=== PATIENT | female | born 2000 | race Caucasian/White ===

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

== ENCOUNTER → 2018-03-02 | Outpatient (REF) | payer MEDICAID | LOC: M LAB REF 13:46 | DX: Z34.83 Encounter for supervision of other normal pregnancy, third trimester (principal) ==

== ENCOUNTER 2018-03-22 10:50 | Inpatient (IN) | payer OTHER, MEDICAID ==
[2018-03-22 11:56] LABS: HEMATOCRIT 36.7 % (36.0-47.0); HEMOGLOBIN 12.3 g/dl (12.0-15.5); MEAN CORPUSCULAR HEMOGLOBIN 30.9 pg (27.0-33.0); MEAN CORPUSCULAR HGB CONC 33.5 g/dl (32.0-36.5); MEAN CORPUSCULAR VOLUME 92.2 fl (80.0-96.0); PLATELET COUNT, AUTOMATED 193 10^3/uL (150-450); RED BLOOD COUNT 3.98 10^6/uL (4.00-5.40); RED CELL DISTRIBUTION WIDTH 14.5 % (11.5-14.5); WHITE BLOOD COUNT 18.9 10^3/uL (4.0-10.0)
[2018-03-22] MEDS: BUTORPHANOL 2 MG/ML INJ (J0595) IV (12:03)
[2018-03-22] MEDS: PROMETHAZINE INJ 25 MG/ML VIAL (J2550) IV (12:03)
[2018-03-22] MEDS ORDERED: OXYTOCIN 30 UNITS IN 0.9% NaCl 500ML IV BAG (J2590) As Ordered (13:22)
[2018-03-22] MEDS ORDERED: MEASLES,MUMPS,RUBELLA VACCINE INJ (MMR-II) (90707) SC (14:30)
[2018-03-22] MEDS ORDERED: OXYTOCIN DRIP 30 UNITS in APPROPRIATE DILUENT 1 EA IV (14:30)
[2018-03-22] MEDS ORDERED: RHOGAM 300 MCG (1500 IU) INJ (J2790) IM (14:30)
[2018-03-22] MEDS ORDERED: DOCUSATE SODIUM 100 MG CAP PO (14:30)
[2018-03-22] MEDS ORDERED: METHYLERGONOVINE MALEATE 0.2 MG TAB PO (14:30)
[2018-03-22] MEDS ORDERED: DIBUCAINE 1% OINTMENT 30GM TOP (14:30)
[2018-03-22] MEDS ORDERED: ONDANSETRON 4MG/2ML VIAL (J2405) IV (14:30)
[2018-03-22] MEDS: IBUPROFEN 800 MG TAB PO (18:30)
[2018-03-23] MEDS: IBUPROFEN 800 MG TAB PO ×2 (03:14→16:44)
[2018-03-23] MEDS: ACETAMINOPHEN 500 MG TAB PO ×2 (08:47→16:44)
[2018-03-23] MEDS: PRENATAL VITAMINS CHEWABLE TABLET PO (08:48)
[2018-03-24] MEDS: IBUPROFEN 800 MG TAB PO (03:56)
[2018-03-24] MEDS: PRENATAL VITAMINS CHEWABLE TABLET PO (09:00)
== END 2018-03-24 10:45 | disposition home or self-care (01) | DRG 560 ==
LOC: M LDO 10:50 → M LDI 11:01 → M OBS 18:04
PROVIDERS: Specialist
PROC: 10E0XZZ Delivery of Products of Conception, External Approach (ICD-10-PCS; principal; 2018-03-22)
DX: O80 Encounter for full-term uncomplicated delivery (principal); Z3A.39 39 weeks gestation of pregnancy; Z37.0 Single live birth

== ENCOUNTER → 2019-04-29 | Outpatient (REF) | payer OTHER ==
[~2019-04-29] MED LIST: FISH100049 PO; IBUP-1114 PO; MAPA500T2 PO; PRENTAB55 PO; PROBCAP4 PO; VYVA60CA PO; ZOLO50TA PO
== END ==
LOC: M LAB REF 13:02
PROVIDERS: ATTEND Specialist
DX: Z12.4 Encounter for screening for malignant neoplasm of cervix (principal)

== ENCOUNTER → 2020-11-13 | Outpatient (REF) | payer OTHER | LOC: M SFHCWAGY 13:29 | PROVIDERS: ATTEND Specialist | DX: Z01.419 Encounter for gynecological examination (general) (routine) without abnormal findings (principal) ==

== ENCOUNTER → 2021-12-17 | Outpatient (REF) | payer OTHER | LOC: M SFHCWAGY 13:04 | PROVIDERS: ATTEND Specialist | DX: R87.610 Atypical squamous cells of undetermined significance on cytologic smear of cervix (ASC-US) (principal); Z12.4 Encounter for screening for malignant neoplasm of cervix ==

== ENCOUNTER → 2024-03-06 | Outpatient (REF) | payer OTHER ==
[~2024-03-06] MED LIST changes: +FLUO40CA PO; +HYDR1CAP25 PO; +MULT1TAB8 PO
== END ==
LOC: M SFHCWAGY 12:39
PROVIDERS: ATTEND Specialist
DX: Z12.4 Encounter for screening for malignant neoplasm of cervix (principal); R87.610 Atypical squamous cells of undetermined significance on cytologic smear of cervix (ASC-US)

== ENCOUNTER → 2025-06-10 | Outpatient (CLI) | payer OTHER, SELFPAY ==
[~2025-06-10] MED LIST changes: +BUSP5TA; +IBUP1TAB6 PO; +LEXA1TAB
[2025-06-10 17:26] LABS: PLATELET COUNT, AUTOMATED 257 10^3/uL (150-450)
[2025-06-10 18:10] LABS: Trichomonas vaginalis (AMP) NOT DETECTED (NEGATIVE)
[2025-06-10 18:15] LABS: HIV 1&2 SCREEN NEGATIVE (NEGATIVE)
[2025-06-10 18:24] LABS: HEPATITIS C VIRUS ABY INDEX < 0.02 INDEX (<0.8)
[2025-06-10 18:33] LABS: GC DNA AMPLIFICATION NEGATIVE (NEGATIVE)
== END ==
LOC: M PLALAB 15:27
PROVIDERS: ATTEND Advanced Practice Midwife
DX: Z34.81 Encounter for supervision of other normal pregnancy, first trimester (principal)

== ENCOUNTER → 2025-06-10 | Outpatient (REF) | payer OTHER, SELFPAY | LOC: M PLALAB 10:36 | PROVIDERS: ATTEND Advanced Practice Midwife | DX: Z34.81 Encounter for supervision of other normal pregnancy, first trimester (principal); Z53.9 Procedure and treatment not carried out, unspecified reason ==

== ENCOUNTER → 2025-07-11 | Outpatient (CLI) | payer OTHER, SELFPAY ==
[~2025-07-11] MED LIST changes: +ACET-907 PO; -IBUP1TAB6 PO; +LOVE1INJ SC; +MULTTAB20 PO; +SFHIBU600 PO; +VITA50TA6 PO
== END ==
LOC: M PLALAB 15:11
PROVIDERS: ATTEND Student in an Organized Health Care Education/Training Program
DX: Z13.79 Encounter for other screening for genetic and chromosomal anomalies (principal)

== ENCOUNTER → 2025-08-15 | Outpatient (CLI) | payer MEDICAID, OTHER | LOC: M WHC 08:50 | PROVIDERS: ATTEND Student in an Organized Health Care Education/Training Program | DX: Z34.80 Encounter for supervision of other normal pregnancy, unspecified trimester (principal) ==

== ENCOUNTER → 2025-09-02 | Outpatient (CLI) | payer MEDICAID, OTHER | LOC: M PLALAB 13:48 | PROVIDERS: ATTEND Nurse Practitioner Family | DX: Z34.82 Encounter for supervision of other normal pregnancy, second trimester (principal) ==

== ENCOUNTER → 2025-09-16 | Outpatient (CLI) | payer OTHER | LOC: M WHC 12:47 | PROVIDERS: ATTEND Advanced Practice Midwife | DX: Z34.82 Encounter for supervision of other normal pregnancy, second trimester (principal); Z3A.23 23 weeks gestation of pregnancy ==